=== PATIENT | female | born 1985 | race Caucasian/White ===

== ENCOUNTER 2021-05-02 10:03 | Emergency (ER) | payer OTHER ==
[~2021-05-02] VITALS: Ht 170.2 cm; Wt 63.5 kg
[2021-05-02 10:11] VITALS: BP 143/92
[2021-05-02] MEDS ORDERED: ONDA4TAB12 PO (10:29)
--- NOTE | 2021-05-02 10:29 | PHYS DOC ---
Past History Past Medical History: No Pertinent History (LOYDA NOLEN APRN) Past Surgical History: (LOYDA NOLEN APRN) Smoking: Non-smoker Alcohol Use: None (LOYDA NOLEN APRN) General Adult EDM: Chief Complaint: DIZZY/LIGHT HEADED HPI: HPI: Patient is a 35-year-old female that presents today with dizziness lightheadedness. Patient states she was diagnosed with COVID 19 last Saturday and over the last couple days has had increased dizziness, she said she has been taking care of all of her children as well as being sick, she states she is drinking she thinks around a gallon of fluid a day but has not been eating very much. Patient also states that she has had low-grade fevers and a slight cough. (LOYDA NOLEN APRN) Review of Systems: Review of Systems: Constitutional: Denies fever or chills Eyes: Denies change in visual acuity HENT: Denies nasal congestion or sore throat Respiratory: Denies cough or shortness of breath Cardiovascular: Denies chest pain or edema GI: Nausea : Denies dysuria Musculoskeletal: Denies back pain or joint pain Integument: Denies rash Neurologic: Dizziness Endocrine: Denies polyuria or polydipsia Lymphatic: Denies swollen glands Psychiatric: Denies depression or anxiety (LOYDA NOLEN APRN) Allergies: Allergies: Allergies Coded Allergies Type Severity Reaction Last Updated Verified No Known Drug Allergies 05/02/21 No (LOYDA NOLEN APRN) Physical Exam: PE: Constitutional: Well developed, well nourished, no acute distress, non-toxic appearance. [] HENT: Normocephalic, atraumatic, bilateral external ears normal, oropharynx moist, no oral exudates, nose normal. [] Eyes: PERRLA, EOMI, conjunctiva normal, no discharge. [] Neck: Normal range of motion, no tenderness, supple, no stridor. [] Cardiovascular:Heart rate regular rhythm, no murmur [] Lungs & Thorax: Bilateral breath sounds clear to auscultation [] Abdomen: Bowel sounds normal, soft, no tenderness, no masses, no pulsatile masses. [] Skin: Warm, dry, no erythema, no rash. [] Back: No tenderness, no CVA tenderness. [] Extremities: No tenderness, no cyanosis, no clubbing, ROM intact, no edema. [] Neurologic: Alert and oriented X 3, normal motor function, normal sensory function, no focal deficits noted, steady gait Psychologic: Affect normal, judgement normal, mood normal. [] (LOYDA NOLEN APRN) Current Patient Data: Vital Signs: Vital Signs Date Time Temp Pulse Resp B/P (MAP) Pulse Ox O2 Delivery O2 Flow Rate FiO2 05/02/21 10:11 99.0 72 16 143/92 (109) 99 Room Air (LOYDA NOLEN APRN) EKG: EKG: [] (LOYDA NOLEN APRN) Radiology/Procedures: Radiology/Procedures: [] (LOYDA NOLEN APRN) Heart Score: C/O Chest Pain: N/A Risk Factors: Risk Factors: DM, Current or recent (<one month) smoker, HTN, HLP, family history of CAD, obesity. Risk Scores: Score 0 - 3: 2.5% MACE over next 6 weeks - Discharge Home Score 4 - 6: 20.3% MACE over next 6 weeks - Admit for Clinical Observation Score 7 - 10: 72.7% MACE over next 6 weeks - Early Invasive Strategies (LOYDA NOLEN APRN) Course & Med Decision Making: Course & Med Decision Making Pertinent Labs and Imaging studies reviewed. (See chart for details) 1025 patient appears nontoxic and stable in appearance, vital signs are stable heart rate is in the 80s blood pressure is 140s over 90s. Patient states that she also has sick children at home and she feels like she has not had time to rest. Patient is informed to continue to increase by mouth fluids to 2 to 3 L daily, she may also try some Gatorade as well to help with electrolyte replacement, also following a brat diet considering her nausea may also help getting nutrition. Patient will be given a prescription for Zofran to help with the nausea as well. Patient is informed to follow-up with her primary care physician after her 10 days of quarantine if her symptoms still continue. Patient verbalized understanding to this and agreeable to the plan of care. (LOYDA NOLEN APRN) Course & Med Decision Making I was the Attending physician on the above date of service of this patient. This patient was evaluated, examined, treated, and dispositioned from the emergency department by the mid-level practitioner. I reviewed history, physical exam findings and plan of care with midlevel practitioner and agreed to provided care Electronically signed, Jose Romero DO (JOSE ROMERO DO) Paulo Disclaimer: Paulo Disclaimer: This electronic medical record was generated, in whole or in part, using a voice recognition dictation system. (LOYDA NOLEN APRN) Departure Departure: Impression: Primary Impression: COVID-19 Disposition: HOME / SELF CARE / HOMELESS Condition: STABLE Referrals: BERRY TAVARES DO (PCP) Patient Instructions: Clear Liquid Diet Additional Instructions: Zofran 4 mg take 1 tablet every 6-8 hours as needed for nausea. Take this medication and wait 30 minutes after taking this to try some by mouth fluids. Please use with caution may cause constipation Clear liquids while feeling nauseated and then advance to a brat diet (bananas, rice, applesauce, toast, and mashed potatoes.) Follow-up with your primary care physician if your symptoms continue pressure 10 days. You have been tested for or diagnosed with COVID-19. It is an infection caused by a new type of coronavirus. COVID-19 will cause cold-like or mild flu symptoms in most. It can cause more severe symptoms like problems breathing in some. There is no treatment for COVID-19. The body will clear the infection over time. Self-care will help to ease discomfort. Steps to Take: Self-Care Rest as needed. Healthy habits may help you feel better. Steps include: Choose healthy foods including fruits and vegetables. Drink water throughout the day. Get plenty of sleep each night. If you smoke, try to quit. It may ease breathing. Avoid alcohol. Keep Others Healthy The virus can spread to others. Droplets are released every time you sneeze or cough. The droplets can get into the mouth, nose, or eyes of people near you and lead to infection. To lower the chances of spreading COVID-19 to others: Stay at home until your doctor has said it is safe to leave. If you tested positive this will mean staying isolated until both of the following are true: At least 10 days have passed since the start of illness. You are free of fever for at least 72 hours without the use of medicine. During this time: - Avoid public areas, events, or transportation. Do not return to work or school until your doctor has said it is safe to do so. - Call ahead if you need to go to a medical center. Let them know you may have COVID-19. It will help them guide you where to go. They may also ask you to wear a facemask when you come to the office. - If you call for emergency medical services, let them know you may have COVID- 19. While at home: - Try to avoid close contact with others. Stay about 6 feet away. - If possible, spend most of your time in a separate room from others. - Use a face mask if you will be in close contact with others such as sharing a room or vehicle. - Have someone wipe down common surfaces in the home. Use household organizational research consultant every day on areas like doorknobs, counters, or sinks. - Cough or sneeze into a tissue. Throw the tissue away right after use. If a tissue is not available, cough or sneeze into your elbow. - Wash your hands often. Wash them after sneezing or coughing. Use soap and water and wash for at least 20 seconds. Alcohol based hand book cleaner can be used if soap and water is not available. - Do not prepare food for others. Avoid sharing personal items like forks, spoons, or toothbrushes. - Avoid close contact with pets while you are sick. There is no evidence of the virus passing to pets. This is a safety step until more is known about this virus. Isolation can be frustrating. Social interaction can help. Keep in touch with friends and family through phone and tech options. You can still interact with others in your home, just keep a safe distance of about 6 feet. Follow-up: Your doctors office will check in with you to see if there are any changes in your health. You may be asked to keep track of symptoms to share with them. They will also let you know when you are clear to be in public again. Problems to Look Out For: Contact your doctor if your recovery is not going as you expect. Get emergency care if you have problems such as: - Trouble breathing - Nonstop chest pain or pressure - Changes in awareness, confusion, or problems waking - Lips or face have bluish color - Worsening of symptoms If you think you have an emergency, call for emergency medical services right away. As taken from [facility] [place] [facility] Ondansetron (ONDANSETRON ODT) 4 Mg Tab.rapdis 1 TAB PO PRN Q6-8HRS for nausea, #16 TAB Prov: LOYDA NOLEN APRN 05/02/21 LOYDA NOLEN APRN May 02, 2021 10:29 JOSE ROMERO DO May 04, 2021 07:20
== END 2021-05-02 10:34 | disposition home or self-care (01) ==
LOC: ER 10:03
DX: U07.1 COVID-19 (principal); R42 Dizziness and giddiness
CPT/HCPCS: 99283